=== PATIENT | male | born 1975 | race African-American/Black ===

== ENCOUNTER 2024-05-03 18:24 | Emergency (ER) | payer SELFPAY ==
[2024-05-03] VITALS (9 sets, daily range): BP systolic 144–154; BP diastolic 92–101; PULSE 72–82; RESP 16–18; TEMP 36.7; O2SAT 96–98; BMI 29.8
--- OUTSIDE RECORDS SUMMARY | 2024-05-03 18:27 | XMS_ITS | Clinical Summary ---
Author Organization [employer] [facility] Address [place], [place] [address] Care Team Providers Care Apparel Embroidery Digitizer Name Role Phone Pcp, No Primary Care Provider Unavailabl e Allergies Active Allergy Reactions Criticality Noted Date Comments Hydrochlorothiazide *Unknown 01/17/2017 Lisinopril Angioedema 02/06/2017 Medications * This document contains information received from the source organization and may not represent a complete record from that organization. aspirin chewable 81 mg chewable tablet Take 81 mg by mouth once daily with a meal. Active acetaminophen (TYLENOL) 325 mg tabletIndicatio ns:Rotator cuff impingement syndrome, left Take 1-3 Tablets (325-975 mg) by mouth every 6 hours if needed for Pain. Max acetaminophen dose: 4000mg in 24 hrs. 200 Tablet 1 Active hydrocortisone 1 % creamIndication s:Rotator cuff impingement syndrome, left,Contact dermatitis, unspecified contact dermatitis type, unspecified trigger Apply topically to affected area(s) 2 times daily. Apply to neck twice daily for one week 20 g 1 Active omeprazole (PRILOSEC) 40 mg Delayed-Release capsuleIndicati ons:Gastroesoph ageal reflux disease, unspecified whether esophagitis present Take 1 Capsule (40 mg) by mouth once daily. 30 Capsule 2 Active amLODIPine (NORVASC) 10 mg tabletIndicatio ns:HTN (hypertension) Take 1 Tablet (10 mg) by mouth once daily. 90 Tablet 3 Active metoprolol succinate (TOPROL XL) 100 mg Sustained-Relea se tabletIndicatio ns:HTN (hypertension) Take 1 Tablet (100 mg) by mouth once daily. 90 Tablet 3 Active Active Problems Problem Noted Date Diagnosed Date Calculus of gallbladder with chronic cholecystitis without obstruction 11/01/2019 Angioedema of lips 12/13/2016 Benign essential hypertension 07/04/2016 Hyperlipidemia LDL goal <130 06/27/2016 HTN (hypertension) 09/01/2015 Gastroesophageal reflux disease without esophagi tis 09/01/2015 Immunizations Name Administration Dates Next Due Influenza, IIV4 02/15/2021,03/19/2018 Pneumococcal Poly,23-Valent (Pneumovax) 02/16/20 21 Tdap 02/15/2021,04/04/2011 Social History Tobacco Use Types Packs/Day Years Used Date Smoking Tobacco: Every Day Cigarettes Smokeless Tobacco: Never Tobacco Cessation:Ready to Q uit: Yes; Counseling Given: Yes Comments:1 pack a week Alcohol Use Standard Drinks/Week Comments Yes 0 (1 standard drink = 0.6 oz pur e alcohol) 2-3 beers per weekend PHQ-2 Answer Date Recorded PHQ-2 TOTAL SCORE 0 02/15/2021 Social Connections Answer Date Recorded Frequency of Communication with Friends and Fami ly Not on file 04/16/2021 Financial Resource Strain Answer Date R ecorded Difficulty of Paying Living Expenses Not on file 04/16/2021 Difficulty of Paying Living Expenses Not on file 04/16/2021 Sex and Gender Information Value Date Recorded Sex Assigned at Not on file Legal Sex Male 7:36 AM PRODUCE ASSOCIATE Gender Identity Not on file Sexual Orientation Not on file 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 Not on file Not on file Not on f ile Obstetrics History Last Filed Vital Signs Vital Sign Reading Time Taken Comments Blood Pressure 147/91 02/01/2022 6:50 PM CDT Pulse 81 02/01/2022 6:50 PM CDT Temperature 36.9 C (98.4 F) 02/01/2022 3:40 PM CDT Respiratory Rate 16 02/01/2022 3:40 PM CDT Oxygen Saturation 97% 02/01/2022 6:35 PM CDT Inhaled Oxygen Concentration - - Weight 102.5 kg (226 lb) 02/01/2022 3:40 PM CDT Height 177.8 cm (5' 10) 02/01/2022 3:40 PM CDT Body Mass Index 32.43 02/01/2022 3:40 PM CDT Plan of Treatment Health Maintenance Due Date Last Done Comments HIV for age 15-65 1990 Colonoscopy through age 75 2020 Depression screening for age 12+ 02/16/2022 02/16/2021, 02/15/2021, 02/15/2021, Additional history exists BMI (ht and wt on same day) for age 18+ 04/18/2022 04/18/2021, 02/15/2021, 10/05/2020, Additional history exists COVID-19 vaccine series (2023- season) 2023 Influenza for age 9-49 12/21/2023 02/15/2021, 2017 Lipids for age 45-75 02/15/2026 02/15/2021, 09/01/19 16 Tetanus booster 02/15/2031 02/15/2021, 04/04/2011 Hepatitis C screening for age 18-79 Completed 09/28/2019 Pneumococcal series for age 6-49 Aged Out 02/15/2021 No longer eligible based on patient's age to complete this topic Tdap Completed 02/15/2021, 04/04/2011 Procedures Procedure Name Priority Date/Time Associated Diagnosis Comments LIPID PANEL Routine 02/15/2021 10:03 AM CDT Lipid screening ACUTE HEPATITIS PANEL TONY 09/28/2019 8:46 AM CDT from Last 3 Months or Most Recently Relevant to Health Maintenance Results * (ABNORMAL) LIPID PANEL (02/15/2021 10:03 AM CDT) CHOLESTEROL,TOTAL 183 100 - 199 mg/dL 02/15/2021 5:37 PM CDT [facility] TRIGLYCERIDES 132 <150 mg/dL 02/15/2021 5:37 PM CDT [facility] HDL CHOLESTEROL 34(L) >40 mg/dL 5:37 PM CDT [facility] NON-HDL CHOLESTEROL 149(H) <145 mg/dl 02/15/2021 5:37 PM CDT [facility] CHOL/HDL RATIO 5.38(H) <4.50 02/15/2021 5:37 PM CDT [facility] LDL CHOLESTEROL 123 <=130 mg/dL 02/15/2021 5:37 PM CDT [facility] VLDL CHOLESTEROL 26 <=30 mg/dL 02/15/2021 5:37 PM CDT [facility] PROVIDER ORDERED STATUS RANDOM 02/15/2021 5:37 PM CDT [facility] Blood BLOOD SPECIMEN / Unknown Venipuncture / Unknown 02/15/2021 10:03 AM CDT 02/15/2021 10:03 AM CDT Jocelyn Pak MD CHEMISTRY Final Resul t [facility] [address] [place] [address], * ACUTE HEPATITIS PANEL (09/28/2019 8:46 AM CDT) HEPATITIS C ANTIBODY Non-Reactive Non-Reactive 09/28/2019 3:31 PM CDT [facility] Comment:Antibodies to HCV no t detected; does not exclude the possibility of exposure to HCV. IGM ANTI HAV Non-Reactive Non-Reactive 09/28/19 20 3:31 PM CDT [facility] HBSAG Nonreactive Nonreactive 09/28/2019 3:31 PM CDT [facility] IGM ANTI HBC Non-Reactive Non-Reactive 09/28/19 20 3:31 PM CDT [facility] Blood BLOOD SPECIMEN / Unknown Extra Tube / Unknown 09/28/2019 8:46 AM CDT 09/28/2019 8:51 AM CDT Narrative [facility] - 09/28/2019 3:31 PM CDT Anti-HBc IgM not detected. Does not exclude the possibility of exposure to or infection with HBV. us Albaro Martinez MD SEND OUTS Final Res ult [facility] [address] [place] [address], [place] from Last 3 Months or Most Recently Relevant to Health Maintenance Insurance [employer] Advance Directives * Full Code (Latest Code Status on File) Date Activated Date Inactivated Comments 12/16/2019 11:04 AM 12/16/2019 7:37 PM Question Answer Comments Code Status Discussion: Discussed Care Teams Apparel Embroidery Digitizer Relationship Specialty Start Date End Date Pcp, No . PCP - General 06/28/22
--- OUTSIDE RECORDS SUMMARY | 2024-05-03 18:27 | XMS_ITS | Encounter Summary ---
Author Organization [facility] Address [address] [place] [address] Phone Care Team Providers Care Acetylene Torch Operator Name Role Phone Pcp, No Primary Care Provider Unavailabl e Reason for Visit * Reason Onset Date Comments Refill Request 03/25/2024 amlodipine Encounter Details Date Type Department Care Team ([facility] st Contact Info) Description 03/25/2024 Refill [facility] [address] [place] [address] Susie Jang DO [address] [place] [address] Refill Request (amlodipine) Social History Tobacco Use Types Packs/Day Years Used Date Smoking Tobacco: Every Day Cigarettes 0.1 4 Alcohol Use Standard Drinks/Week Comments Yes 0 (1 standard drink = 0.6 oz pur e alcohol) weekends - couple beers Sex and Gender Information Value Date Recorded Sex Assigned at Not on file Legal Sex Male 7:59 PM VEHICLE COST ENGINEER Gender Identity Not on file Sexual Orientation Not on file documented as of this encounter Miscellaneous Notes * Telephone Encounter - Susie Jang DO - 03/29/2024 4:08 PM VEHICLE COST ENGINEER 30d refill of Amlodipine given. Pt needs in-clinic appt for additional refills; last appt 07/2022. Susie Jang DO, 03/29/2024 4:09 PM CLE COST ENGINEER documented in this encounter Plan of Treatment Not on file documented as of this encounter Visit Diagnoses Not on filedocumented in this encounter Care Teams Acetylene Torch Operator Relationship Specialty Start Date End Date Pcp, [place] [address] PCP - General 06/01/13 documented as of this encounter
--- OUTSIDE RECORDS SUMMARY | 2024-05-03 18:27 | XMS_ITS | Clinical Summary ---
Author Organization [employer] Address [address] [place] [address] Phone Care Team Providers Care Paper Cleaner Name Role Phone Pcp, No Primary Care Provider Unavailabl e Source Comments [place] [employer] is fully rolled out on [employer]. Last update 09/23/08.[facility] Allergies No known active allergies Medications * This document contains information received from the source organization and may not represent a complete record from that organization. * Be aware that medications may not be up to date as of this document. Always verify current medications with patient. famotidine (PEPCID) 40 mg oral TABS Take 1 tablet (40 mg) by mouth at bedtime. 30 tablet 07/22/2021 4:00 PM CDT 2 Active acetaminophen (TYLENOL) 500 mg oral tablet Take 1 tablet (500 mg) by mouth every 4 hours as needed for Mild Pain. 30 tablet 07/12/2022 12:25 PM CDT 3 Active aspirin 81 mg oral chewable tab Take 1 tablet (81 mg) by mouth daily. Active GABApentin (NEURONTIN) 100 mg oral capsule Take 3 capsules (300 mg) by mouth 3 times daily as needed for pain. 30 capsule 02/21/2023 6:38 AM CDT 3 Active methocarbamol (ROBAXIN-500) 500 mg oral TABS Take 1 tablet (500 mg) by mouth every 6 hours as needed for spasms and pain. 30 tablet 02/21/2023 6:38 AM CDT 3 Active metoprolol succinate (TOPROL XL) 100 mg oral XL tablet Take 2 tablets by mouth once daily 60 tablet 4 Active albuterol (VENTOLIN HFA;PROVENTIL HFA;PROAIR) 108 (90 BASE) mcg/act inhalation inhaler Inhale 2 puffs every 4 hours as needed (wheezing). 18 g 02/16/2024 6:31 PM CDT Active amLODIPine (NORVASC) 10 mg oral tablet TAKE 1 TABLET BY MOUTH ONCE DAILY . APPOINTMENT REQUIRED FOR FUTURE REFILLS 30 tablet 4 Active Active Problems Problem Noted Date Diagnosed Date Hyperlipidemia LDL goal <130 06/27/2016 HTN (hypertension) 09/01/2015 Assessment & Plan (08/16/2022 5:18 PM CDT): Elevated BP today, however pt ran out of his BP meds a couple days ago. New rx were provided and he agrees to return for a BP recheck in 2 weeks. Routine HTN labs ordered today. I also reminded pt of impact of EtOH and smoking on his BP; verbalizes understanding and declines intervention for smoking cessation. Gastroesophageal reflux disease without esophagi tis 09/01/2015 Resolved Problems Problem Noted Date Diagnosed Date Resolved Date Smoking 08/16/2022 09/27/2022 Calculus of gallbladder with chronic cholecystitis without obstruction 11/01/20192022 Angioneurotic edema, initial encounter 12/13/2016 08/16/2022 Benign essential hypertension 07/04/2016 08/16/2022 Encounters Date Type Department Care Team Description 03/25/2024 Refill [facility] [address] [place] [address] Susie Jang, DO Refill Request (amlodipine) 02/16/2024 3:45 PM CDT - 02/16/2024 6:22 PM CDT Emergency [facility] [address] [place] [address] Gian Stafford MD Viral URI with cough Discharge Disposition: Discharged to home or self care 02/16/2024 Travel 02/04/2024 Refill [facility] [address] [place] [address] Gambucci, Susie L, DO Other from Last 3 Months Immunizations Name Administration Dates Next Due Influenza Vaccine 6 Months through Adult - Prefi lled 02/15/2021,03/19/2018 Pneumococcal Polysaccharide, 23 Valent Vaccine(Pneumovax 23) 02/15/2021 Tetanus Toxoid, Reduced Diph theroid Toxoid Acellular Pertussis 02/15/2021,04/04/2011 Family History Medical History Relation Name Comments Cancer Neg Hx Diabetes Neg Hx Heart disease Neg Hx Social History Tobacco Use Types Packs/Day Years Used Date Smoking Tobacco: Every Day Cigarettes 0.1 4 Alcohol Use Standard Drinks/Week Comments Yes 0 (1 standard drink = 0.6 oz pur e alcohol) weekends - couple beers Sex and Gender Information Value Date Recorded Sex Assigned at Not on file 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 Gender Identity Not on file Sexual Orientation Not on file Last Filed Vital Signs Vital Sign Reading Time Taken Comments Blood Pressure 153/97 02/16/2024 3:30 PM CDT Pulse 98 02/16/2024 3:30 PM CDT Temperature 36.8 C (98.2 F) 02/16/2024 3:30 PM CDT Respiratory Rate 16 02/16/2024 3:30 PM CDT Oxygen Saturation 96% 02/16/2024 3:30 PM CDT Inhaled Oxygen Concentration - - Weight 99.8 kg (220 lb) 02/21/2023 5:46 AM CDT Height 177.8 cm (5' 10) 02/21/2023 5:46 AM CDT Body Mass Index 31.57 02/21/2023 5:46 AM CDT Plan of Treatment Health Maintenance Due Date Last Done Comments CT Colonography 1975 Colonoscopy 1975 Dental Oral Exam 1975 Dental Prophylaxis 1975 Dental X-Ray: Bitewings 1975 FIT/Cologuard 1975 Sigmoidoscopy 1975 Imm: COVID-19 (#1) 1980 Periodontal Maintenance 1989 HIV Screening 1990 HEALTH MAINTENANCE PROTOCOL 1994 Imm: HepB (1 of 3 - 19+ 3-do se series) 1994 Imm: Zoster (1 of 2) 1994 Imm: Pneumonia Peds or At-Ri sk less than 65 years (2 of 2 - PCV) 02/15/2022 02/15/2021 PREVENTATIVE VISIT 02/15/2022 02/15/2021 Colorectal Cancer Screening 08/27/2023 iFOB/FIT 08/27/2023 08/26/2022 Imm: Flu (#1) 12/21/2023 02/15/2021, 03/19/2018 MEDICATION REFILL PROTOCOL 03/29/2025 03/29/2024 Lipid Screening 08/17/2027 08/16/2022, 02/15/2021 Imm: DTaP/Tdap (3 - Td or Tdap) 02/15/2031 02/15/2021, 04/04/2011 Imm: HPV Aged Out No longer eligi ble based on patient's age to complete this topic Imm: HepA Aged Out No longer eligi ble based on patient's age to complete this topic Imm: Hib Aged Out No longer eligi ble based on patient's age to complete this topic Imm: Meningitis Aged Out No longer el igible based on patient's age to complete this topic Procedures Procedure Name Priority Date/Time Associated Diagnosis Comments COVID/FLU COMBO STAT 02/16/2024 5:08 PM CDT XR CHEST 2 VIEWS PA + LAT* Routine 02/16/2024 3:54 PM CDT PC BLOOD OCCULT FECAL HGB Routine 08/26/2022 8:00 AM CDT Colon cancer screening PANEL LIPID Routine 08/16/2022 4:29 PM CDT Primary hypertension from Last 3 Months or Most Recently Relevant to Health Maintenance Results * COVID/FLU COMBO (02/16/2024 5:08 PM CDT) COVID-19 Not Detected Not Detected [facility] Comment:This is an FDA appro carlo test. It is performed by nucleic acid amplification. Flu A Not Detected Not Detected [facility] Flu B Not Detected Not Detected [facility] Nasopharyngeal Swab 02/16/20 5:08 PM CDT 02/16/2024 5:10 PM CDT Narrative [facility] - 02/16/2024 5:34 PM CDT Must be SENIOR NET SOFTWARE ENGINEER swab. COVID and Influenza testing can be completed on the same swab Sending tests other than COVID-19 and Influenza requires additional swab(s) Is the patient a healthcare employee: No Is the patient a [employer] ([facility]) Employee: No Date of symptom onset: 02/15/24 If eligible is the patient interested in medication for treatment of COVID disease: Yes Elif Penny PA-C LABORATORY Final Res ult [facility] [address] [address] * XR CHEST 2 VIEWS PA + LAT* (02/16/2024 3:54 PM CDT) Anatomical Region Laterality Modality Chest Computed Radiogr aphy 02/16/2024 3:56 PM CDT Impressions 02/16/2024 3:56 PM CDT Impression: Clear chest. Reading Radiologist: Isra Lubin Narrative 02/16/2024 3:56 PM CDT Technique: XR CHEST 2 VIEWS PA + LAT* Indication: cough Comparison: 07/12/2022 Findings: The heart and pulmonary vasculature are normal. The lungs are clear. There is no pleural effusion or pneumothorax. No other abnormality is seen. Procedure Note Isra Lubin MD - 02/16/2024 Technique: XR CHEST 2 VIEWS PA + LAT* Indication: cough Comparison: 07/12/2022 Findings: The heart and pulmonary vasculature are normal. The lungs areclear. There is no pleural effusion or pneumothorax. No otherabnormality is seen. IMPRESSION Impression: Clear chest. Reading Radiologist: Isra Lubin Gian Stafford MD RAD XRAY Final Resul t * IFOB (FECAL OCCULT BLOOD IMMUNOASSAY) (08/26/2022 8:00 AM CDT) Fecal Occult Blood Immunoassay Negative Negative [facility] Feces 08/26/2022 8:00 AM CDT 08/26/2022 10:14 AM CDT Susie Jang DO LABORATORY Final Resul t Performing Organization Address [facility] de Phone Number [facility] [address] [address] * (ABNORMAL) PANEL LIPID (08/16/2022 4:29 PM CDT) Calc LDL 94 <=100 mg/dL [facility] Comment: Interpretive Data <100 Desirable 100-129 Above desirable 130-159 Borderline high 160-189 High >=190 Very high Cholesterol 169 <=200 mg/dL [facility] Comment: Interpretive Data <200 Desirable 200-239 Borderline high >=240 High HDL 43 >=40 mg/dL [facility] Comment: Interpretive Data Normal > 40 Male > 50 Female Non-HDL Cholesterol Calculated 126 <=130 mg/dL [facility] Comment: Interpretive Data <130 Desirable 130-159 Above desirable 160-189 Borderline high 190-219 High >=220 Very high Triglyceride 162(H) <=150 mg/dL [facility] Comment: Interpretive Data <150 Normal 150-199 Borderline high 200-499 High >=500 Very high Blood 08/16/2022 4:29 PM CDT 08/16/2022 7:29 PM CDT Narrative [facility] - 08/16/2022 9:16 PM CDT Fasting: No us Susie Jang DO LABORATORY Edited Resu lt - Final Performing Organization Address City/[facility] Co de Phone Number [facility] [address] [address] from Last 3 Months or Most Recently Relevant to Health Maintenance Care Teams Paper Cleaner Relationship Specialty Start Date End Date Pcp, No [facility] [place] [address] PCP - General 06/01/13
--- OUTSIDE RECORDS SUMMARY | 2024-05-03 18:27 | XMS_ITS | Clinical Summary ---
Author Organization [facility] Address [address] [place] [address] Care Team Providers Care Water Superintendent Name Role Phone Wood Gibson MD Primary Care Provider [phone] Allergies Active Allergy Reactions Criticality Noted Date Comments Hydrochlorothiazide 01/17/2017 Lisinopril Swelling 12/13/2016 Medications omeprazole (PRILOSEC) 20 MG CR capsuleIndicatio ns:Gastroesophag eal reflux disease without esophagitis Take 1 capsule (20 mg) by mouth daily 90 capsule 3 7 Active nicotine polacrilex (NICORETTE) [address] 2 mg inside cheek every hour as needed for smoking cessation Active albuterol (PROAIR HFA/PROVENTIL HFA/VENTOLIN HFA) 108 (90 BASE) MCG/ACT Inhaler Inhale 2 puffs into the lungs every 6 hours as needed for shortness of breath / dyspnea or wheezing 1 Inhaler 7 Active METOPROLOL SUCCINATE ER PO Take 25 mg by mouth Active triamterene-hydr ochlorothiazide (MAXZIDE) 75-50 MG per tablet Take 1 tablet by mouth daily Active Active Problems Problem Noted Date Diagnosed Date Angioedema 12/14/2016 Angioedema of lips, initial encounter 12/13/2016 Benign essential hypertension 07/04/2016 Hyperlipidemia LDL goal <130 06/27/2016 Gastroesophageal reflux disease without esophagi tis 06/27/2016 Resolved Problems Problem Noted Date Diagnosed Date Resolved Date Acute chest pain 06/18/2016 06/27/2016 Immunizations Name Administration Dates Next Due TDAP Vaccine (Adacel) 04/04/2011 Family History Medical History Relation Comments Heart Disease Father Hypertension Mother Relation Status Comments Father Mother Alive Social History Tobacco Use Types Packs/Day Years Used Date Smoking Tobacco: Every Day Cigarettes Smokeless Tobacco: Never Alcohol Use Standard Drinks/Week Comments Yes 0 (1 standard drink = 0.6 oz pur e alcohol) sober 60 days Sex and Gender Information Value Date Recorded Sex Assigned at Not on file Legal Sex Male 5:05 AM CASING BLOWER Gender Identity Not on file Sexual Orientation Not on file Last Filed Vital Signs Vital Sign Reading Time Taken Comments Blood Pressure 135/106 03/14/2019 3:53 PM CASING BLOWER Pulse 92 03/14/2019 3:53 PM CASING BLOWER Temperature 37.6 C (99.7 F) 03/14/2019 3:53 PM CASING BLOWER Respiratory Rate 16 03/14/2019 3:53 PM CASING BLOWER Oxygen Saturation 100% 03/14/2019 3:53 PM CASING BLOWER Inhaled Oxygen Concentration - - Weight 101.6 kg (224 lb) 02/14/2019 10:04 AM CDT Height 177.8 cm (5' 10) 02/14/2019 10:04 AM CDT Body Mass Index 32.14 02/14/2019 10:04 AM CDT Plan of Treatment Not on file Advance Directives For more information, please contact: [phone] * Full Code (Latest Code Status on File) Date Activated Date Inactivated Comments 12/15/2016 8:50 AM 09/16/2018 12:30 PM * Full Code Date Activated Date Inactivated Comments 12/13/2016 8:06 PM 12/15/2016 8:50 AM * Full Code Date Activated Date Inactivated Comments 06/19/2016 10:19 AM 12/13/2016 8:06 PM * Full Code Date Activated Date Inactivated Comments 06/18/2016 4:19 PM 06/19/2016 10:19 AM Care Teams Water Superintendent Relationship Specialty Start Date End Date Wood Gibson MD PCP - General Family Practice 01/17/17
--- OUTSIDE RECORDS SUMMARY | 2024-05-03 18:27 | XMS_ITS | Referral Summary ---
Author Organization [facility] Address [address] [place] [address] Phone Care Team Providers Care Spa Attendant Name Role Phone Pcp, No Primary Care Provider Unavailabl e Source Comments [email or web address] is fully rolled out on [employer]. Last update 09/23/08.[employer] Encounters Date Type Department Care Team Description 03/25/2024 Refill [facility] [address] [place] [address] Susie Jang DO Refill Request (amlodipine) 02/16/2024 Travel 02/16/2024 3:45 PM CDT - 02/16/2024 6:22 PM CDT Emergency [facility] [address] [place] [address] [address] [place] [address] Gian Stafford MD Viral URI with cough Discharge Disposition: Discharged to home or self care 02/04/2024 Refill [facility] [address] [place] [address] Susie Jang DO Other from Last 3 Months Allergies No known active allergies Medications * [...] (wheezing). 18 g 02/16/2024 6:31 PM CDT 4 Active amLODIPine (NORVASC) 10 mg oral tablet [...] 12/13/2016 08/16/2022 Benign essential hypertension 07/04/2016 08/16/2022 Immunizations Name Administration Dates Next Due Influenza Vaccine 6 Months through Adult - Prefi lled 02/15/2021,03/19/2018 Pneumococcal Polysaccharide, 23 Valent Vaccine(Pneumovax 23) 02/15/2021 Tetanus Toxoid, Reduced Diph theroid Toxoid Acellular Pertussis 02/15/2021,04/04/2011 Social History Tobacco Use Types Packs/Day Years Used Date Smoking Tobacco: Every Day Cigarettes 0.1 4 Alcohol Use Standard Drinks/Week Comments Yes 0 (1 standard drink = 0.6 oz pur e alcohol) weekends - couple beers Sex and Gender Information Value Date Recorded Sex Assigned at Not on file 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 It is performed by nucleic acid amplification. Flu A Not Detected Not Detected [facility] Flu B Not Detected Not Detected [facility] Nasopharyngeal Swab 02/16/20 5:08 PM CDT 02/16/2024 5:10 PM CDT Narrative [facility] - 02/16/2024 5:34 PM CDT Must be SENIOR STAFF ACCOUNTANT swab. COVID and Influenza testing can be completed on the same swab Sending tests other than COVID-19 and Influenza requires additional swab(s) Is the patient a healthcare employee: No Is the patient a [place] ([facility]) Employee: No Date of symptom onset: 02/15/24 If eligible is the patient interested in medication for treatment of COVID disease: Yes Elif Penny PA-C LABORATORY Final Res ult [facility] [address] [address] * XR CHEST 2 VIEWS PA + [...] CDT) Fecal Occult Blood Immunoassay Negative Negative [facility] Feces 08/26/2022 8:00 AM CDT 08/26/2022 10:14 AM CDT Susie Jang DO LABORATORY Final Resul t Performing Organization Address [facility] Co de Phone Number [facility] [address] [address] * (ABNORMAL) PANEL LIPID (08/16/2022 4:29 PM CDT) Calc LDL 94 <=100 mg/dL [facility] Comment: Interpretive Data <100 Desirable 100-129 Above desirable 130-159 Borderline high 160-189 High >=190 Very high Cholesterol 169 <=200 mg/dL [facility] Comment: Interpretive Data <200 Desirable 200-239 Borderline high >=240 High HDL 43 >=40 mg/dL [facility] Comment: Interpretive Data Normal > 40 Male > 50 Female Non-HDL Cholesterol Calculated 126 <=130 mg/dL [facility] Comment: Interpretive Data <130 Desirable 130-159 Above desirable 160-189 Borderline high 190-219 High >=220 Very high Triglyceride 162(H) <=150 mg/dL [facility] Comment: Interpretive Data <150 Normal 150-199 Borderline high 200-499 High >=500 Very high Blood 08/16/2022 4:29 PM CDT 08/16/2022 7:29 PM CDT Narrative [facility] - 08/16/2022 9:16 PM CDT Fasting: No Susie Jang DO LABORATORY Edited Resu lt - Final Performing Organization Address City/[facility] Co de Phone Number [facility] [address] [address] from Last 3 Months or Most Recently Relevant to Health Maintenance Care Teams Spa Attendant Relationship Specialty Start Date End Date [facility], No [facility] [place] [address] PCP - General 06/01/13
--- OUTSIDE RECORDS SUMMARY | 2024-05-03 18:27 | XMS_ITS | Encounter Summary ---
Author Organization [facility] Address [address] [place] [address] Phone Care Team Providers Care Gage Maker Name Role Phone Pcp, No Primary Care Provider Unavailabl e Reason for Visit * Reason Onset Date Comments Review Test Results 08/28/2022 Encounter Details Date Type Department Care Team (Late st Contact Info) Description 08/28/2022 Nurse Triage [facility] [address] [place] [address] Ulises Roque, RN [address] [place] [address] Review Test Results Social History Tobacco Use Types Packs/Day Years Used Date Smoking Tobacco: Every Day Cigarettes 0.1 4 Alcohol Use Standard Drinks/Week Comments Yes 0 (1 standard drink = 0.6 oz pur e alcohol) weekends - couple beers Sex and Gender Information Value Date Recorded Sex Assigned at Not on file 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 No / Unsure 08/19/2022 9:00 AM CDT documented as of this encounter Miscellaneous Notes * Telephone Encounter - Ulises Roque RN - 08/28/2022 8:38 AM CDT D: Telephone call received from patient seeking lab test results. A: Spoke with patient and advised him lab tests came back ok. R/P: Pt verbalized a understanding of the content being delivered. documented in this encounter Plan of Treatment Not on file documented as of this encounter Visit Diagnoses Not on filedocumented in this encounter Additional Health Concerns Infection Onset Date Last Indicated Resolved Time SARS-CoV-2 Rule-Out 02/16/2024 02/16/2024 02/16/20 24 5:34 PM CDT documented as of this encounter Care Teams Gage Maker Relationship Specialty Start Date End Date Pcp, [place] [address] PCP - General 06/01/13 documented as of this encounter
--- NOTE | 2024-05-03 18:28 | ED.CHESTPAIN ---
HPI - Chest Pain General Time Seen by Provider: 18:28 Date Seen: 05/03/24 Chief Complaint: Chest Pain Stated Complaint: Chest pain (heart side only) Time Seen by Provider: 05/03/24 18:27 Source: patient, RN notes reviewed and old records reviewed Mode of arrival: ambulatory Limitations: no limitations History of Present Illness HPI narrative: 49-year-old male with history of hypertension, hyperlipidemia, presents with chest pain. Patient notes yesterday he had some left-sided chest pain and that the muscle felt tight. He reports that it actually felt hard and different from the right side. This got better overnight although he still notes soreness in the chest and says it does seem to get tight and hard today. The soreness is been constant, worse when he moves his arm. He has not taken anything for this. No cough, no shortness of breath. Patient does smoke cigarettes per Related Data Home Medications ?Medication ?Instructions ?Recorded ?Confirmed amlodipine 10 mg tablet 10 mg PO DAILY 09/27/22 09/27/22 metoprolol succinate 100 mg 100 mg PO DAILY 09/27/22 09/27/22 tablet,extended release 24 hr aspirin 325 mg capsule 325 mg PO DAILY 05/03/24 05/03/24 Allergies Allergy/AdvReac Type Severity Reaction Status Date / Time No Known Drug Allergies Allergy Verified 09/27/22 13:49 [facility] Social History Smoking Status: Current every day smoker What tobacco products do you use: cigarettes How often do you have a drink containing alcohol: 2-3 times a week How many standard drinks containing alcohol do you have on a typical day: 3 or 4 AUDIT-C Alcohol total score: 4 Non-prescribed substance use: denies use Exam Narrative Exam Narrative: General: Well-developed and well-nourished, no acute distress Head: Atraumatic and normocephalic Eyes: Pupils are equal reactive, extraocular motions intact, conjunctiva clear ENT: External nose and ears are normal, posterior pharynx without erythema or exudate Neck: No midline cervical tenderness, full spontaneous range of motion the neck, trachea midline, no adenopathy Heart: Regular rate and rhythm no murmurs or thrills. Tenderness of the left pectoralis muscle diffusely Lungs: Clear to auscultation bilaterally without wheezes or crackles Abdomen: Soft, nontender, nondistended with active bowel sounds Musculoskeletal: No tenderness, deformity, or edema Neurologic: Awake, alert, and oriented x3, no gross focal neurologic deficits, cranial nerves intact as tested Psych: Mood and affect are appropriate Skin: No rashes Const Vital Signs, click to edit/add: Vital Signs - 24 hr 05/03/24 18:33 05/03/24 18:51 05/03/24 19:22 Temperature 98.1 F Pulse Rate 74 72 Pulse Rate [Pulse Oximeter] 77 Respiratory Rate 16 18 Blood Pressure 144/99 H Blood Pressure [Right Upper Arm] 154/101 H Pulse Oximetry 98 98 98 Oxygen Delivery Method Room Air 05/03/24 19:23 Temperature Pulse Rate 75 Pulse Rate [Pulse Oximeter] Respiratory Rate Blood Pressure Blood Pressure [Right Upper Arm] Pulse Oximetry 98 Oxygen Delivery Method Course Course ED Course: Reviewed most recent emergency department visit from January 2020 for when patient was seen at,, medically stable at that time and was diagnosed with upper respiratory infection with plan for symptomatic treatment. EKG independently interpreted by me performed at 6:34 p.m. demonstrates sinus rhythm rate 76, no acute ST elevations or depressions, normal intervals, normal axis, QTC 436, CO 184, no change from prior of September 2022. Patient seen examined, presents with left-sided chest pain. Reports that the muscle of left chest wall became ?hard? yesterday and sore, continued soreness with occasional twinges of the possibly coming hard today. Pain is worse with moving the arm. On exam, tenderness of the left pectoralis muscle. Lungs are clear, initial EKG is reassuring. Symptoms sound most consistent with chest wall spasm and pain. Labs are ordered, single troponin if negative his adequate for cardiac rule out given onset of symptoms yesterday. Reevaluation(s) Time of Reevaluation #1: 19:46 Reevaluation #1: Chest x-ray independently interpreted by me negative for acute findings. Labs with normal CBC, slightly low hemoglobin which will need outpatient follow-up although this is been seen in the past. Vital Signs Vital signs: Initial Vital Signs Respiratory Effort Normal, Spontaneous, Non-Labored 05/03/24 18:26 Respiratory Depth Normal 05/03/24 18:26 Respiratory Pattern Normal 05/03/24 18:26 Vital Signs Temperature 98.1 F 05/03/24 18:33 Pulse Rate 77 05/03/24 18:33 Respiratory Rate 16 05/03/24 18:33 Blood Pressure 154/101 H 05/03/24 18:33 Pulse Oximetry 98 05/03/24 18:33 Oxygen Delivery Method Room Air 05/03/24 18:33 Temperature 98.1 F 05/03/24 18:33 Pulse Rate 75 05/03/24 19:23 Respiratory Rate 18 05/03/24 19:22 Blood Pressure 144/99 H 05/03/24 19:22 Pulse Oximetry 98 05/03/24 19:23 Oxygen Delivery Method Room Air 05/03/24 18:33 Medications Administered Medications: Discontinued Medications Generic Name Dose Route Start Last Admin Trade Name Freq PRN Reason Stop Dose Admin Aspirin 324 mg 05/03/24 18:45 05/03/24 19:00 Aspirin 81 Mg Tab.Chew PO 05/03/24 18:46 324 mg ONCE ONE Administration MDM - Chest Pain Lab Data Labs: Lab Results 05/03/24 Range/Units 19:17 WBC 10.59 (4.50-11.00) K/uL RBC 4.11 L (4.30-5.90) m/uL Hgb 12.8 L (13.5-17.5) gm/dL Hct 38.3 (37.0-53.0) % MCV 93 (80-100) fL MCH 31 (26-34) pg MCHC 33 (32-36) gm/dL RDW Coeff of Cruz 15.5 (11.5-15.5) % Plt Count 420 (140-440) K/uL Neut % (Auto) 53.1 (42.0-72.0) % Lymph % (Auto) 33.5 (20-44) % [place] % (Auto) 9.2 (0.0-11.0) % Eos % (Auto) 3.0 (0.0-7.0) % Baso % (Auto) 0.5 (0.0-3.0) % Neut # (Auto) 5.63 (1.7-7.0) K/uL Lymph # (Auto) 3.55 H (0.90-2.90) K/uL [place] # (Auto) 1.00 H (0.00-0.90) K/UL Eos # (Auto) 0.32 (0.00-0.50) K/uL Baso # (Auto) 0.05 (0.00-0.30) K/uL Abs Immat Gran (auto) 0.07 (0.00-0.30) K/uL Imm/Tot Granulo (auto) 0.7 % Sodium 141 (135-149) mmol/L Potassium 3.4 L (3.6-5.1) mmol/L Chloride 110 (96-114) mmol/L Carbon Dioxide 23 (20-32) mmol/L Anion Gap 8 (7-15) mEq/L BUN 18 (5-24) mg/dL Creatinine 0.8 (0.5-1.5) mg/dL Estimated Creat Clear 115.33 Estimated GFR 108 ml/min Glucose 88 (60-115) mg/dL Calcium 8.9 (8.4-10.6) mg/dL Magnesium 1.8 (1.5-2.6) mg/dL Discharge Plan Discharge Clinical Impression: Chest wall pain Patient Disposition: Home, Self-Care Instructions: Chest Wall Pain (ED) Additional Instructions: Tylenol and ibuprofen as needed for pain Warm packs and gentle massage for comfort Follow-up with primary care for consideration for physical therapy Activity Level: Activity as Tolerated Discharge Diet: Regular Prescriptions: No Action metoprolol succinate 100 mg tablet extended release 24 hr 100 mg PO DAILY amlodipine 10 mg tablet 10 mg PO DAILY aspirin 325 mg capsule 325 mg PO DAILY Follow Up/Referrals: Provider,Not a Local [Primary Care Provider] - Stand Alone Forms: Code [facility] Info Instructions
--- OUTSIDE RECORDS SUMMARY | 2024-05-03 18:28 | XMS_ITS | Referral Summary ---
Author Organization [facility] Address [address] [place] [id number] Care Team Providers Care Tire Retreader Name Role Phone Wood Gibson MD Primary Care Provider [phone] Allergies Active Allergy Reactions Criticality Noted Date [...] Dates Next Due TDAP Vaccine (Adacel) 04/04/2011 Social History Tobacco Use Types Packs/Day Years Used Date Smoking Tobacco: Every Day Cigarettes Smokeless Tobacco: Never Alcohol Use Standard Drinks/Week Comments Yes 0 (1 standard drink = 0.6 oz pur e alcohol) sober 60 days Sex and Gender Information Value Date Recorded Sex Assigned at Not on file Legal Sex Male 5:05 AM JUNIOR PARALEGAL Gender Identity Not on file Sexual Orientation Not on file Last Filed Vital Signs Vital Sign Reading Time Taken Comments Blood Pressure 135/106 03/14/2019 3:53 PM JUNIOR PARALEGAL Pulse 92 03/14/2019 3:53 PM JUNIOR PARALEGAL Temperature 37.6 C (99.7 F) 03/14/2019 3:53 PM JUNIOR PARALEGAL Respiratory Rate 16 03/14/2019 3:53 PM JUNIOR PARALEGAL Oxygen Saturation 100% 03/14/2019 3:53 PM JUNIOR PARALEGAL Inhaled Oxygen Concentration - - Weight 101.6 kg (224 lb) 02/14/2019 10:04 AM CDT Height 177.8 cm (5' 10) 02/14/2019 10:04 AM CDT Body Mass Index 32.14 02/14/2019 10:04 AM CDT Plan of Treatment Not on file Advance Directives For more information, please contact: [phone] * Full Code (Latest Code Status on File) Date Activated Date Inactivated Comments 12/15/2016 8:50 AM 09/16/2018 12:30 PM * Full Code Date Activated Date Inactivated Comments 12/13/2016 8:06 PM 12/15/2016 8:50 AM * Full Code Date Activated Date Inactivated Comments 06/19/2016 10:19 AM 12/13/2016 8:06 PM * Full Code Date Activated Date Inactivated Comments 06/18/2016 4:19 PM 06/19/2016 10:19 AM Care Teams Tire Retreader Relationship Specialty Start Date End Date Wood Gibson MD PCP - General Family Practice 01/17/17
--- NOTE | 2024-05-03 18:45 | CRLHL7_ITS ---
For Patients: As a result of the Cures Act, medical imaging exams and procedure reports are released immediately into your electronic medical record. You may view this report before your referring provider. If you have questions, please contact your health care provider. INDICATION: Chest pain. TECHNIQUE: Chest 2 views. COMPARISON: May 08, 2021. FINDINGS: Cardiovascular and mediastinum: Cardiomediastinal silhouette is within normal limits. Lungs and pleural spaces: Lungs are clear. No sign of pleural effusion. No pneumothorax. Bones and soft tissues: No significant findings. IMPRESSION: No acute findings and no significant change from the prior exam. Dictated by Sabiha Shields MD @ 05/03/2024 7:30:55 PM (Electronically Signed)
[2024-05-03] MEDS: ASPIRIN 81 MG TAB.CHEW 324 MG PO (19:00)
--- OUTSIDE RECORDS SUMMARY | 2024-05-03 19:02 | XMS_ITS | Clinical Summary ---
Author Organization [employer] Address [address] [place] [id number] Phone Care Team Providers Care Braid Folder Name Role Phone Pcp, No Primary Care Provider Unavailabl e Source Comments [employer] is fully rolled out on [employer]. Last update 09/23/08.[employer] Allergies No known active allergies Medications * [...] Type Department Care Team Description 03/25/2024 Refill [facility] [address] [place] [address] Susie Jang, DO Refill Request (amlodipine) 02/16/2024 3:45 PM CDT - 02/16/2024 6:22 PM CDT Emergency [facility] [address] [place] [address] Gian Stafford MD Viral URI with cough Discharge Disposition: Discharged to home or self care 02/16/2024 Travel 02/04/2024 Refill [facility] [address] [place] [address] Gambucci, Susie L, DO Other from Last [...] on file 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 It is performed by nucleic acid amplification. Flu A Not Detected Not Detected [facility] Flu B Not Detected Not Detected [facility] Nasopharyngeal Swab 02/16/20 5:08 PM CDT 02/16/2024 5:10 PM CDT Narrative [facility] - 02/16/2024 5:34 PM CDT Must be ASSOCIATE VICE PRESIDENT swab. COVID and Influenza testing can be completed on the same swab Sending tests other than COVID-19 and Influenza requires additional swab(s) Is the patient a healthcare employee: No Is the patient a [place] ([facility]) Employee: No Date of symptom onset: 02/15/24 If eligible is the patient interested in medication for treatment of COVID disease: Yes Elif Penny PA-C LABORATORY Final Res ult [facility] [address] [address] * XR CHEST 2 VIEWS PA + [...] CDT) Fecal Occult Blood Immunoassay Negative Negative [facility] Feces 08/26/2022 8:00 AM CDT 08/26/2022 10:14 AM CDT Susie Jang DO LABORATORY Final Resul t Performing Organization Address [facility] de Phone Number [facility] [address] [address] * (ABNORMAL) PANEL LIPID (08/16/2022 4:29 PM CDT) Calc LDL 94 <=100 mg/dL [facility] Comment: Interpretive Data <100 Desirable 100-129 Above desirable 130-159 Borderline high 160-189 High >=190 Very high Cholesterol 169 <=200 mg/dL [facility] Comment: Interpretive Data <200 Desirable 200-239 Borderline high >=240 High HDL 43 >=40 mg/dL [facility] Comment: Interpretive Data Normal > 40 Male > 50 Female Non-HDL Cholesterol Calculated 126 <=130 mg/dL [facility] Comment: Interpretive Data <130 Desirable 130-159 Above desirable 160-189 Borderline high 190-219 High >=220 Very high Triglyceride 162(H) <=150 mg/dL [facility] Comment: Interpretive Data <150 Normal 150-199 Borderline high 200-499 High >=500 Very high Blood 08/16/2022 4:29 PM CDT 08/16/2022 7:29 PM CDT Narrative [facility] - 08/16/2022 9:16 PM CDT Fasting: No us Susie Jang DO LABORATORY Edited Resu lt - Final Performing Organization Address City/[facility] Co de Phone Number [facility] [address] [address] from Last 3 Months or Most Recently Relevant to Health Maintenance Care Teams Braid Folder Relationship Specialty Start Date End Date Pcp, No [facility] [place] [address] PCP - General 06/01/13
--- OUTSIDE RECORDS SUMMARY | 2024-05-03 19:02 | XMS_ITS | Referral Summary ---
Author Organization [facility] Address [address] [place] [address] Phone Care Team Providers Care Network Control Operator Name Role Phone Pcp, No Primary Care Provider Unavailabl e Source Comments Prow[employer] is fully rolled out on [employer]. Last update 09/23/08.[employer] Encounters Date Type Department Care Team Description 03/25/2024 Refill [facility] [address] [place] [address] Susie Jang DO Refill Request (amlodipine) 02/16/2024 Travel 02/16/2024 3:45 PM CDT - 02/16/2024 6:22 PM CDT Emergency [facility] Emergency Department [address] [place] [address] [id number] [place] [address] Gian Stafford MD Viral URI with cough Discharge Disposition: Discharged to home or self care 02/04/2024 Refill [facility] [address] [place] [address] Susie Jang DO Other from Last 3 [...] on file 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 It is performed by nucleic acid amplification. Flu A Not Detected Not Detected [facility] Flu B Not Detected Not Detected [facility] Nasopharyngeal Swab 02/16/20 5:08 PM CDT 02/16/2024 5:10 PM CDT Narrative [facility] - 02/16/2024 5:34 PM CDT Must be TOE POUNDER swab. COVID and Influenza testing can be completed on the same swab Sending tests other than COVID-19 and Influenza requires additional swab(s) Is the patient a healthcare employee: No Is the patient a Lucille ([facility]) Employee: No Date of symptom onset: 02/15/24 If eligible is the patient interested in medication for treatment of COVID disease: Yes Elif Penny PA-C LABORATORY Final Res ult [facility] [address] [address] * XR CHEST 2 VIEWS PA + [...] CDT) Fecal Occult Blood Immunoassay Negative Negative [facility] Feces 08/26/2022 8:00 AM CDT 08/26/2022 10:14 AM CDT Susie Jang DO LABORATORY Final Resul t Performing Organization Address [facility] Co de Phone Number [facility] [address] [address] * (ABNORMAL) PANEL LIPID (08/16/2022 4:29 PM CDT) Calc LDL 94 <=100 mg/dL [facility] Comment: Interpretive Data <100 Desirable 100-129 Above desirable 130-159 Borderline high 160-189 High >=190 Very high Cholesterol 169 <=200 mg/dL [facility] Comment: Interpretive Data <200 Desirable 200-239 Borderline high >=240 High HDL 43 >=40 mg/dL [facility] Comment: Interpretive Data Normal > 40 Male > 50 Female Non-HDL Cholesterol Calculated 126 <=130 mg/dL [facility] Comment: Interpretive Data <130 Desirable 130-159 Above desirable 160-189 Borderline high 190-219 High >=220 Very high Triglyceride 162(H) <=150 mg/dL [facility] Comment: Interpretive Data <150 Normal 150-199 Borderline high 200-499 High >=500 Very high Blood 08/16/2022 4:29 PM CDT 08/16/2022 7:29 PM CDT Narrative [facility] - 08/16/2022 9:16 PM CDT Fasting: No Susie Jang DO LABORATORY Edited Resu lt - Final Performing Organization Address City/[facility] Co de Phone Number [facility] [address] [address] from Last 3 Months or Most Recently Relevant to Health Maintenance Care Teams Network Control Operator Relationship Specialty Start Date End Date Pcp, No [facility] [place] [address] PCP - General 06/01/13
--- OUTSIDE RECORDS SUMMARY | 2024-05-03 19:02 | XMS_ITS | Encounter Summary ---
Author Organization [facility] Address [address] [place] [address] Phone Care Team Providers Care Bagging Machine Operator Name Role Phone Pcp, No Primary Care Provider Unavailabl e Reason for Visit * Reason Onset Date Comments Review Test Results 08/28/2022 Encounter Details Date Type Department Care Team (Late st Contact Info) Description 08/28/2022 Nurse Triage [facility] [address] [place] [address] Ulises Roque, RN [address] [place] [address] Review Test Results Social History Tobacco Use Types Packs/Day Years Used Date Smoking Tobacco: Every Day Cigarettes 0.1 4 Alcohol Use Standard Drinks/Week Comments Yes 0 (1 standard drink = 0.6 oz pur e alcohol) weekends - couple beers Sex and Gender Information Value Date Recorded Sex Assigned at Not on file 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
--- OUTSIDE RECORDS SUMMARY | 2024-05-03 19:02 | XMS_ITS | Encounter Summary ---
Author Organization [facility] Address [address] [place] [address] Phone Care Team Providers Care Manager Auto Name Role Phone Pcp, No Primary Care Provider Unavailabl e Reason for Visit * Reason Onset Date Comments Refill Request 03/25/2024 amlodipine Encounter Details Date Type Department Care Team ([facility] st Contact Info) Description 03/25/[address] [facility] [address] [place] [address] Susie Jang DO 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 Pt needs in-clinic appt for additional refills; last appt 07/2022. Susie Jang DO, 03/29/2024 4:09 PM CTOR OF STRATEGIC MARKETING documented in this encounter Plan of Treatment Not on file documented as of this encounter Visit Diagnoses Not on filedocumented in this encounter Care Teams Manager Auto Relationship Specialty Start Date End Date Pcp, [place] [address] PCP - General 06/01/13 documented as of this encounter
--- OUTSIDE RECORDS SUMMARY | 2024-05-03 19:02 | XMS_ITS | Clinical Summary ---
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 Gender Identity Not on file Sexual Orientation Not on file Last Filed Vital Signs Vital Sign Reading Time Taken Comments Blood Pressure 135/106 03/14/2019 3:53 PM BREAKER UP MACHINE OPERATOR Pulse 92 03/14/2019 3:53 PM BREAKER UP MACHINE OPERATOR Temperature 37.6 C (99.7 F) 03/14/2019 3:53 PM BREAKER UP MACHINE OPERATOR Respiratory Rate 16 03/14/2019 3:53 PM BREAKER UP MACHINE OPERATOR Oxygen Saturation 100% 03/14/2019 3:53 PM BREAKER UP MACHINE OPERATOR Inhaled Oxygen Concentration - - Weight 101.6 kg (224 lb) 02/14/2019 10:04 AM CDT Height 177.8 cm (5' 10) 02/14/2019 10:04 AM CDT Body Mass Index 32.14 02/14/2019 10:04 AM CDT Plan of Treatment Not on file Advance Directives For more information, please contact: [phone] * Full Code (Latest Code Status on File) Date Activated Date Inactivated Comments 12/15/2016 8:50 AM 09/16/2018 12:30 PM * Full Code Date Activated Date Inactivated Comments 12/13/2016 8:06 PM 12/15/2016 8:50 AM * Full Code Date Activated Date Inactivated Comments 06/19/2016 10:19 AM 12/13/2016 8:06 PM * Full Code Date Activated Date Inactivated Comments 06/18/2016 4:19 PM 06/19/2016 10:19 AM Care Teams Wraparound Facilitator Relationship Specialty Start Date End Date Wood Gibson MD PCP - General Family Practice 01/17/17
--- OUTSIDE RECORDS SUMMARY | 2024-05-03 19:02 | XMS_ITS | Clinical Summary ---
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 Not on file Not on file [...] - 199 mg/dL 02/15/2021 5:37 PM CDT [facility] TRIGLYCERIDES 132 <150 mg/dL 02/15/2021 5:37 PM CDT [facility] HDL CHOLESTEROL 34(L) >40 mg/dL 5:37 PM CDT [facility] NON-HDL CHOLESTEROL 149(H) <145 mg/dl 02/15/2021 5:37 PM CDT [facility] CHOL/HDL RATIO 5.38(H) <4.50 02/15/2021 5:37 PM CDT [facility] LDL CHOLESTEROL 123 <=130 mg/dL 02/15/2021 5:37 PM CDT [facility] VLDL CHOLESTEROL 26 <=30 mg/dL 02/15/2021 5:37 PM CDT [facility] PROVIDER ORDERED STATUS RANDOM 02/15/2021 5:37 PM CDT [facility] Blood BLOOD SPECIMEN / Unknown Venipuncture / Unknown 02/15/2021 10:03 AM CDT 02/15/2021 10:03 AM CDT Jocelyn Pak MD CHEMISTRY Final Resul t [facility] [address] [place] [address], * ACUTE HEPATITIS PANEL (09/28/2019 8:46 AM CDT) HEPATITIS C ANTIBODY Non-Reactive Non-Reactive 09/28/2019 3:31 PM CDT [facility] Comment:Antibodies to HCV no t detected; does not exclude the possibility of exposure to HCV. IGM ANTI HAV Non-Reactive Non-Reactive 09/28/19 20 3:31 PM CDT [facility] HBSAG Nonreactive Nonreactive 09/28/2019 3:31 PM CDT [facility] IGM ANTI HBC Non-Reactive Non-Reactive 09/28/19 20 3:31 PM CDT [facility] Blood BLOOD SPECIMEN / Unknown Extra Tube / Unknown 09/28/2019 8:46 AM CDT 09/28/2019 8:51 AM CDT Narrative [facility] - 09/28/2019 3:31 PM CDT Anti-HBc IgM not detected. Does not exclude the possibility of exposure to or infection with HBV. us Albaro Martinez MD SEND OUTS Final Res ult [facility] [address] [place] [address], [place] from Last 3 Months or Most Recently Relevant to Health Maintenance Insurance [employer] Advance Directives * Full Code (Latest Code Status on File) Date Activated Date Inactivated Comments 12/16/2019 11:04 AM 12/16/2019 7:37 PM Question Answer Comments Code Status Discussion: Discussed Care Teams Webmethods Consultant Relationship Specialty Start Date End Date Pcp, No . PCP - General 06/28/22
--- OUTSIDE RECORDS SUMMARY | 2024-05-03 19:02 | XMS_ITS | Referral Summary ---
Author Organization [facility] Address [address] [place] [address] Care Team Providers Care Cd Reactor Operator Name Role Phone Wood Gibson MD Primary Care Provider [phone] Allergies Active Allergy Reactions Criticality Noted Date [...] on file Legal Sex Male 5:05 AM BRICK MOLDER HAND Gender Identity Not on file Sexual Orientation Not on file Last Filed Vital Signs Vital Sign Reading Time Taken Comments Blood Pressure 135/106 03/14/2019 3:53 PM BRICK MOLDER HAND Pulse 92 03/14/2019 3:53 PM BRICK MOLDER HAND Temperature 37.6 C (99.7 F) 03/14/2019 3:53 PM BRICK MOLDER HAND Respiratory Rate 16 03/14/2019 3:53 PM BRICK MOLDER HAND Oxygen Saturation 100% 03/14/2019 3:53 PM BRICK MOLDER HAND Inhaled Oxygen Concentration - - Weight 101.6 kg (224 lb) 02/14/2019 10:04 AM CDT Height 177.8 cm (5' 10) 02/14/2019 10:04 AM CDT Body Mass Index 32.14 02/14/2019 10:04 AM CDT Plan of Treatment Not on file Advance Directives For more information, please contact: [phone] * Full Code (Latest Code Status on File) Date Activated Date Inactivated Comments 12/15/2016 8:50 AM 09/16/2018 12:30 PM * Full Code Date Activated Date Inactivated Comments 12/13/2016 8:06 PM 12/15/2016 8:50 AM * Full Code Date Activated Date Inactivated Comments 06/19/2016 10:19 AM 12/13/2016 8:06 PM * Full Code Date Activated Date Inactivated Comments 06/18/2016 4:19 PM 06/19/2016 10:19 AM Care Teams Cd Reactor Operator Relationship Specialty Start Date End Date Wood Gibson MD PCP - General Family Practice 01/17/17
[2024-05-03 19:26] LABS: Basophils Absolute Auto 0.05 K/uL (0.00-0.30); Basophils Percent Auto 0.5 % (0.0-3.0); Eosinophils Absolute Auto 0.32 K/uL (0.00-0.50); Hematocrit 38.3 % (37.0-53.0); Hemoglobin* 12.8 gm/dL (13.5-17.5); Immature Granulocytes Abs Auto 0.07 K/uL (0.00-0.30); Immature Granulocytes Pct Auto 0.7 %; Lymphocytes Absolute Auto 3.55 K/uL (0.90-2.90); Lymphocytes Percent Auto 33.5 % (20-44); Mean Corpuscular HGB Conc 33 gm/dL (32-36); Mean Corpuscular Hemoglobin 31 pg (26-34); Mean Corpuscular Volume 93 fL (80-100); Monocytes Percent Auto 9.2 % (0.0-11.0); Neutrophils Absolute Auto 5.63 K/uL (1.7-7.0); Neutrophils Percent Auto 53.1 % (42.0-72.0); Platelet Count* 420 K/uL (140-440); RDW Coefficient of Variation % 15.5 % (11.5-15.5); Red Blood Count 4.11 m/uL (4.30-5.90); White Blood Count* 10.59 K/uL (4.50-11.00)
[2024-05-03 19:27] LABS: Slide Review Reflex No
[2024-05-03 19:42] LABS: Chloride* 110 mmol/L (96-114); Potassium* 3.4 mmol/L (3.6-5.1); Sodium* 141 mmol/L (135-149)
[2024-05-03 19:45] LABS: Anion Gap 8 mEq/L (7-15); Blood Urea Nitrogen* 18 mg/dL (5-24); Calcium* 8.9 mg/dL (8.4-10.6); Carbon Dioxide* 23 mmol/L (20-32); Creatinine* 0.8 mg/dL (0.5-1.5); Est. Creatinine Clearance* 115.33; Estimated Glomerular Filt Rate 108 ml/min; Glucose* 88 mg/dL (60-115); Magnesium* 1.8 mg/dL (1.5-2.6)
== END 2024-05-03 20:28 | disposition home or self-care (01) ==
PROVIDERS: Emergency Provider Family Medicine
DX: R07.9 Chest pain, unspecified (principal)
CPT/HCPCS: 36415; 71046; 80048; 83735; 84484; 85025; 93005; 99284; A9270